=== PATIENT | male | born 1950 | race Caucasian/White ===

== ENCOUNTER 2023-08-16 11:38 | Outpatient (CLI) | payer MEDICARE | END 2023-08-16 11:39 | disposition home or self-care (01) | LOC: CSHCT 11:38 | PROVIDERS: ATTEND Surgery | DX: M47.26 Other spondylosis with radiculopathy, lumbar region (principal); G91.9 Hydrocephalus, unspecified; Z98.890 Other specified postprocedural states; Z98.2 Presence of cerebrospinal fluid drainage device | CPT/HCPCS: 70450; 72110; 75809 ==